=== PATIENT | male | born 1945 | race Asian ===

== ENCOUNTER 2016-10-23 16:54 | Inpatient (IN) | payer MEDICARE, OTHER ==
[~2016-10-23] VITALS: Ht 177.8 cm; Wt 77.6 kg
[2016-10-23] MEDS ORDERED: ALBU2.5V13 IH (17:18)
[2016-10-23] MEDS ORDERED: FISH OIL (17:18)
[2016-10-23] MEDS ORDERED: AMLO2.5T45 PO (17:18)
[2016-10-23] MEDS ORDERED: ALLO100T PO (17:18)
[2016-10-23] MEDS ORDERED: BRIM15DR2 OP (17:18)
[2016-10-23] MEDS ORDERED: MAGN400T27 PO (17:18)
[2016-10-23] MEDS ORDERED: DOCU-150 PO (17:18)
[2016-10-23] MEDS ORDERED: METO25TA6 PO (17:18)
[2016-10-23] MEDS ORDERED: TAMULOSIN (17:18)
[2016-10-23] MEDS ORDERED: ASPI-1159 PO (17:18)
[2016-10-23] MEDS ORDERED: METF500T4 PO (17:18)
[2016-10-23] MEDS ORDERED: FAMO20TA8 PO (17:18)
[2016-10-23] MEDS ORDERED: ATOR20TA65 PO (17:18)
[2016-10-23] MEDS ORDERED: AMIT75TA2 PO (17:18)
[2016-10-23] MEDS ORDERED: CARB15DR2 OP (17:18)
[2016-10-23] MEDS ORDERED: SAXA5TAB PO (17:18)
[2016-10-23] MEDS ORDERED: LEVO25TA2 PO (17:18)
[2016-10-23] MEDS ORDERED: SODIUM CHLORIDE 0.9% 1,000 ML IV ONE (17:19)
[2016-10-23] MEDS ORDERED: SODIUM CHLORIDE 0.9% 1000ML BAG (SEPSIS BOLUS) IV ONE (17:30)
[2016-10-23 17:42] LABS: BG BASE EXCESS -1.6 mmol/L (-2.0-2.0); BG CARBOXYHEMOGLOBIN 0.9 % (0.5-1.5); BG FRACTION INSPIRED OXYGEN 21; BG METHEMOGLOBIN 0.2 % (0.0-1.5); BG OXYHEMOGLOBIN 94.9 % (94.0-97.0); BG PCO2 29.9 mmHg (35.0-45.0); BG PH 7.465 (7.350-7.450); BG PO2 78.8 mmHg (75.0-100.0); BG SAMPLE SITE RIGHT RADIAL; BG TOTAL HEMOGLOBIN 13.8 g/dL (12.0-18.0); BG VENT MODE ROOM AIR
[2016-10-23 18:10] LABS: EOSINOPHILS % 1.9 % (0.0-5.0); HEMATOCRIT. 38.3 % (42.0-52.0); HEMOGLOBIN. 13.2 g/dL (14.0-18.0); LYMPHOCYTES % 21.2 % (20.0-50.0); MEAN CORPUSCULAR HEMOGLOBIN 33.9 pg (28.0-32.0); MEAN PLATELET VOLUME 8.2 fl (7.4-10.4); MONOCYTES % 12.3 % (2.0-8.0); NEUTROPHILS % 63.6 % (40.0-76.0); PLATELET 195 x1000/uL (130-400); RED BLOOD CELL COUNT 3.91 mill/uL (4.7-6.1); RED CELL DISTRIBUTION WIDTH 16.2 % (11.6-14.6)
[2016-10-23 18:15] LABS: CLARITY URINE CLEAR (CLEAR); COLOR URINE YELLOW (YELLOW); GLUCOSE URINE 3+ (NEGATIVE); KETONES URINE NEGATIVE (NEGATIVE); LEUKOCYTE ESTERASE URINE NEGATIVE (NEGATIVE); NITRITE URINE NEGATIVE (NEGATIVE); OCCULT BLOOD URINE NEGATIVE (NEGATIVE); PH URINE 6.5 (4.5-8.0); PROTEIN URINE TRACE (NEGATIVE); SPECIFIC GRAVITY URINE 1.018 (1.005-1.030)
[2016-10-23 18:24] LABS: CARBON DIOXIDE 25 mEq/L (21-32); CHLORIDE 96 mEq/L (98-107); ETHANOL BLOOD < 10 mg/dL
[2016-10-23 18:26] LABS: BETA HYDROXYBUTYRATE 0.2 mMol/L (0.0-0.3); TROPONIN I < 0.02 ng/mL (0.00-0.04)
[2016-10-23 18:48] LABS: INR 1.1; PROTHROMBIN TIME 11.4 sec (9.4-11.6)
[2016-10-23] MEDS ORDERED: LEVOFLOXACIN 500MG PREMIX 100 ML IV ONE (20:00)
[2016-10-23] MEDS ORDERED: KCL 20MEQ/100ML PREMIX 100 ML IV SCH (21:30)
[2016-10-23] MEDS ORDERED: DEXTROSE 50% WATER 50ML SYRINGE IV PRN (21:30)
[2016-10-23] MEDS ORDERED: ACETAMINOPHEN 650MG SUPP PR PRN (21:30)
[2016-10-23] MEDS ORDERED: DIPHENHYDRAMINE 50MG/ML VIAL IV PRN (21:30)
[2016-10-23] MEDS ORDERED: ONDANSETRON HCL 4MG/2ML VIAL IV PRN (21:30)
[2016-10-23 23:00] VITALS: BP 141/99
[2016-10-23 23:01] VITALS: BP 141/99
[2016-10-24] VITALS (12 sets, daily range): BP systolic 115–150; BP diastolic 83–104
[2016-10-24] MEDS: BLOOD SUGAR DIAGNOSTIC STRIP TEST SCH ×4 (00:15→16:11)
[2016-10-24] MEDS: SODIUM CHLORIDE 0.9% 1,000 ML IV SCH ×3 (00:24→19:35)
[2016-10-24] MEDS: INSULIN LISPRO 100 UNITS/ML SUBCUT SCH ×5 (01:47→22:00)
[2016-10-24] MEDS ORDERED: MAGNESIUM 2 G PREMIX 50 ML IV SCH (03:00)
[2016-10-24] MEDS ORDERED: THIAMINE HCL 100 MG in SODIUM CHLORIDE 0.9% 49 ML IV NR (03:00)
[2016-10-24 06:51] LABS: EOSINOPHILS % 10.5 % (0.0-5.0); HEMATOCRIT. 37.9 % (42.0-52.0); HEMOGLOBIN. 13.3 g/dL (14.0-18.0); LYMPHOCYTES % 22.5 % (20.0-50.0); MEAN CORPUSCULAR HEMOGLOBIN 34.4 pg (28.0-32.0); MEAN CORPUSCULAR VOLUME 97.9 fL (80.0-94.0); MEAN PLATELET VOLUME 8.1 fl (7.4-10.4); MONOCYTES % 13.4 % (2.0-8.0); NEUTROPHILS % 52.6 % (40.0-76.0); PLATELET 195 x1000/uL (130-400); RED BLOOD CELL COUNT 3.87 mill/uL (4.7-6.1)
[2016-10-24] MEDS ORDERED: INSULIN LISPRO 100 UNITS/ML SUBCUT SCH (07:20)
[2016-10-24] MEDS ORDERED: POTASSIUM CHLORIDE INJ 40 MEQ in DEXT 5% WATER 250 ML IV NR (10:30)
[2016-10-24] MEDS ORDERED: alfuzosin (11:16)
[2016-10-24] MEDS ORDERED: HYDR12.529 PO (11:16)
[2016-10-24] MEDS ORDERED: RANI150C12 PO (11:16)
[2016-10-24] MEDS ORDERED: CHOL100044 PO (11:16)
[2016-10-24] MEDS ORDERED: POTASSIUM CHLORIDE 20MEQ/PACKET PO SCH (12:00)
[2016-10-24] MEDS: ASPIRIN 325MG EC TABLET PO SCH (14:16)
[2016-10-24] MEDS: INSULIN DETEMIR UD 100 UNITS/ML SYR SUBCUT SCH (22:01)
[2016-10-25] VITALS (10 sets, daily range): BP systolic 131–143; BP diastolic 91–103
[2016-10-25] MEDS: SODIUM CHLORIDE 0.9% 1,000 ML IV SCH ×3 (02:39→18:10)
[2016-10-25] MEDS: BLOOD SUGAR DIAGNOSTIC STRIP TEST SCH ×4 (05:21→20:52)
[2016-10-25] MEDS: INSULIN LISPRO 100 UNITS/ML SUBCUT SCH ×4 (05:21→21:04)
[2016-10-25] MEDS: ASPIRIN 325MG EC TABLET PO SCH (08:59)
[2016-10-25] MEDS ORDERED: MAGNESIUM 1 G PREMIX 100 ML IV NR (14:30)
[2016-10-25] MEDS: ATORVASTATIN CALCIUM 20MG TABLET PO SCH (21:04)
[2016-10-25] MEDS: INSULIN DETEMIR UD 100 UNITS/ML SYR SUBCUT SCH (21:06)
[2016-10-26] VITALS (10 sets, daily range): BP systolic 131–152; BP diastolic 84–104
[2016-10-26] MEDS: BLOOD SUGAR DIAGNOSTIC STRIP TEST SCH ×4 (06:50→21:21)
[2016-10-26] MEDS: INSULIN LISPRO 100 UNITS/ML SUBCUT SCH ×4 (07:20→21:00)
[2016-10-26] MEDS: ASPIRIN 325MG EC TABLET PO SCH (08:23)
[2016-10-26] MEDS: SODIUM CHLORIDE 0.9% 1,000 ML IV SCH (16:16)
[2016-10-26] MEDS: ATORVASTATIN CALCIUM 20MG TABLET PO SCH (21:15)
[2016-10-26] MEDS: INSULIN DETEMIR UD 100 UNITS/ML SYR SUBCUT SCH (21:21)
[2016-10-27] VITALS: BP 148/97
[2016-10-27 04:00] VITALS: BP 120/81
[2016-10-27] MEDS: BLOOD SUGAR DIAGNOSTIC STRIP TEST SCH ×3 (06:26→17:03)
[2016-10-27] MEDS: INSULIN LISPRO 100 UNITS/ML SUBCUT SCH ×3 (06:26→17:03)
[2016-10-27 08:34] VITALS: BP 146/100
[2016-10-27] MEDS: ASPIRIN 325MG EC TABLET PO SCH (08:35)
[2016-10-27 12:37] VITALS: BP_SYST 103; BP_SYST 137; BP_DIAS 53; BP_DIAS 89
[2016-10-27 14:07] VITALS: BP 137/89
[2016-10-27 16:01] VITALS: BP 137/89
== END 2016-10-27 19:05 | disposition home or self-care (01) | DRG 65 ==
LOC: ER 16:54 → EDBEDREQ 20:59 → EDBEDREQSVC 20:59 → EDBEDREQTM 20:59 → 3WST 21:20 → EDBEDREQSVC 21:22 → EDBEDREQTM 21:22 → ENRESERV 21:37 → 8WST 10-26 22:35
PROVIDERS: ADMIT Internal Medicine; ATTEND Internal Medicine
DX: I63.9 Cerebral infarction, unspecified (principal); E44.0 Moderate protein-calorie malnutrition; E11.22 Type 2 diabetes mellitus with diabetic chronic kidney disease; E11.40 Type 2 diabetes mellitus with diabetic neuropathy, unspecified; E87.6 Hypokalemia; I12.9 Hypertensive chronic kidney disease with stage 1 through stage 4 chronic kidney disease, or unspecified chronic kidney disease; N18.9 Chronic kidney disease, unspecified; R47.01 Aphasia; M10.9 Gout, unspecified; F10.20 Alcohol dependence, uncomplicated; R62.7 Adult failure to thrive; E11.65 Type 2 diabetes mellitus with hyperglycemia; Z83.3 Family history of diabetes mellitus; Z86.011 Personal history of benign neoplasm of the brain; Z79.82 Long term (current) use of aspirin; Z79.899 Other long term (current) drug therapy
CPT/HCPCS: 36415; 36600; 51701; 70450; 70551; 71010; 80048; 80053; 80061; 81001; 82010; 82375; 82805; 82962; 83036; 83605; 83735; 84443; 84484; 85025; 85610; 87040; 87086; 92610; 93005; 93880; 96361; 96365; 96367; 97112; 97163; 97166; 97530; 99291; G0482; J1815; J1956; J3411; J3475; J3480; J7030; J7060; A4315

== ENCOUNTER 2017-11-21 09:18 | Inpatient (IN) | payer MEDICARE, OTHER ==
[~2017-11-21] VITALS: Ht 175.3 cm; Wt 75.4 kg
[~2017-11-21 09:18] MED LIST: ALBU2.5V13 IH; ALLO100T PO; AMIT75TA2 PO; AMLO2.5T45 PO; ASPI-1159 PO; ATOR20TA65 PO; BRIM15DR2 OP; CARB15DR2 OP; CHOL100044 PO; DOCU-150 PO; FAMO20TA8 PO; FISH OIL; HYDR12.529 PO; LEVO25TA2 PO; MAGN400T27 PO; METO25TA6 PO; RANI150C12 PO; SAXA5TAB PO; TAMULOSIN; alfuzosin PO
[2017-11-21 09:49] LABS: BASOPHILS % 1.3 % (0.0-2.0); EOSINOPHILS % 0.7 % (0.0-5.0); HEMATOCRIT. 43.6 % (42.0-52.0); HEMOGLOBIN. 14.7 g/dL (14.0-18.0); LYMPHOCYTES % 37.9 % (20.0-50.0); MEAN CORPUSCULAR HEMOGLOBIN 33.6 pg (28.0-32.0); MEAN CORPUSCULAR VOLUME 99.4 fL (80.0-94.0); MEAN PLATELET VOLUME 8.7 fl (7.4-10.4); MONOCYTES % 7.6 % (2.0-8.0); NEUTROPHILS % 52.5 % (40.0-76.0); PLATELET 214 x1000/uL (130-400); RED BLOOD CELL COUNT 4.38 mill/uL (4.7-6.1); RED CELL DISTRIBUTION WIDTH 15.5 % (11.6-14.6)
[2017-11-21 09:53] LABS: CHLORIDE 96 mEq/L (98-107)
[2017-11-21 09:55] LABS: INR 1.2; PROTHROMBIN TIME 11.6 sec (9.1-11.1)
[2017-11-21 10:02] LABS: LDL CHOLESTEROL 145 mg/dL (5-100)
[2017-11-21 10:03] LABS: ETHANOL BLOOD < 10 mg/dL
[2017-11-21 11:30] LABS: CLARITY URINE CLEAR (CLEAR); COLOR URINE YELLOW (YELLOW); KETONES URINE NEGATIVE (NEGATIVE); LEUKOCYTE ESTERASE URINE NEGATIVE (NEGATIVE); NITRITE URINE NEGATIVE (NEGATIVE); OCCULT BLOOD URINE TRACE (NEGATIVE); PROTEIN URINE NEGATIVE (NEGATIVE); SPECIFIC GRAVITY URINE 1.015 (1.005-1.030); UROBILINOGEN URINE 0.2 E.U./dL (0.2-1.0)
[2017-11-21] MEDS ORDERED: IOHEXOL-350 100 ML BOTTLE ONE (11:35)
[2017-11-21 11:43] LABS: *AMPHETAMINES SCREEN URINE NEGATIVE (NEGATIVE); *BARBITURATES SCREEN URINE NEGATIVE (NEGATIVE); CANNABINOID URINE SCREEN NEGATIVE (NEGATIVE)
[2017-11-21 11:44] LABS: *BENZODIAZEPINES SCREEN URINE NEGATIVE (NEGATIVE); *COCAINE SCREEN URINE NEGATIVE (NEGATIVE); METHADONE URINE SCREEN NEGATIVE (NEGATIVE); OPIATES URINE SCREEN NEGATIVE (NEGATIVE)
[2017-11-21 11:45] LABS: PHENCYCLIDINE URINE SCREEN NEGATIVE (NEGATIVE)
[2017-11-21] MEDS ORDERED: LOSA50TA20 MT (15:55)
[2017-11-21] MEDS ORDERED: HYDR5TAB2 PO (15:55)
[2017-11-21] MEDS ORDERED: COLC0.6C3 PO (15:55)
[2017-11-21] MEDS ORDERED: REPA0.5T3 MT (15:55)
[2017-11-21] MEDS ORDERED: HYDR10TA14 PO (15:55)
[2017-11-21 16:00] VITALS: BP 147/83
[2017-11-21] MEDS ORDERED: ONDANSETRON HCL 4MG/2ML INJ IV PRN (16:30)
[2017-11-21] MEDS ORDERED: ACETAMINOPHEN 325MG TABLET PO PRN (16:30)
[2017-11-21] MEDS ORDERED: CLONIDINE 0.1MG TABLET PO PRN (16:30)
[2017-11-21] MEDS ORDERED: DOCUSATE SODIUM 100MG CAPSULE PO PRN (16:30)
[2017-11-21 18:00] VITALS: BP 150/92
[2017-11-21] MEDS: ASPIRIN 81MG EC TABLET PO SCH (18:36)
[2017-11-21] MEDS: AMLODIPINE 10MG TABLET PO SCH (18:37)
[2017-11-21 19:05] VITALS: BP 157/94
[2017-11-21 20:00] VITALS: BP 140/86
[2017-11-21] MEDS ORDERED: DEXTROSE 50% WATER 50ML SYRINGE IV PRN (20:00)
[2017-11-21] MEDS: BLOOD SUGAR DIAGNOSTIC STRIP TEST SCH (20:57)
[2017-11-21] MEDS: INSULIN LISPRO 100 UNITS/ML SUBCUT SCH (21:34)
[2017-11-21 22:00] VITALS: BP 117/69
[2017-11-22] VITALS (12 sets, daily range): BP systolic 106–131; BP diastolic 62–86
[2017-11-22 07:20] LABS: BASOPHILS % 0.9 % (0.0-2.0); EOSINOPHILS % 7.4 % (0.0-5.0); HEMATOCRIT. 40.5 % (42.0-52.0); LYMPHOCYTES % 39.6 % (20.0-50.0); MEAN CORPUSCULAR HEMOGLOBIN 34.2 pg (28.0-32.0); MEAN CORPUSCULAR VOLUME 98.8 fL (80.0-94.0); MEAN PLATELET VOLUME 8.9 fl (7.4-10.4); MONOCYTES % 11.5 % (2.0-8.0); NEUTROPHILS % 40.6 % (40.0-76.0); PLATELET 197 x1000/uL (130-400); RED CELL DISTRIBUTION WIDTH 16.1 % (11.6-14.6)
[2017-11-22] MEDS: BLOOD SUGAR DIAGNOSTIC STRIP TEST SCH ×4 (07:30→21:00)
[2017-11-22 08:15] LABS: CHLORIDE 99 mEq/L (98-107)
[2017-11-22 08:28] LABS: LDL CHOLESTEROL 162 mg/dL (5-100)
[2017-11-22 08:30] LABS: HDL CHOLESTEROL 30 mg/dL (40-59)
[2017-11-22] MEDS: ASPIRIN 81MG EC TABLET PO SCH (08:35)
[2017-11-22] MEDS: AMLODIPINE 10MG TABLET PO SCH (08:36)
[2017-11-22] MEDS: INSULIN LISPRO 100 UNITS/ML SUBCUT SCH ×4 (08:36→21:00)
[2017-11-22 18:44] LABS: T4 FREE 0.45 ng/dL (0.76-1.46)
[2017-11-22 18:59] LABS: FOLIC ACID (FOLATE) SERUM 6.1 ng/mL (>5.38)
[2017-11-22 19:45] LABS: AMMONIA 18 uMol/L (<32)
[2017-11-23] VITALS (9 sets, daily range): BP systolic 112–135; BP diastolic 69–88
[2017-11-23] MEDS: BLOOD SUGAR DIAGNOSTIC STRIP TEST SCH ×2 (07:54→12:04)
[2017-11-23] MEDS: INSULIN LISPRO 100 UNITS/ML SUBCUT SCH ×2 (08:17→12:04)
[2017-11-23] MEDS: AMLODIPINE 10MG TABLET PO SCH (08:18)
[2017-11-23] MEDS ORDERED: THIAMINE HCL 100MG TABLET PO SCH (09:00)
[2017-11-23] MEDS ORDERED: FOLIC ACID 1MG TABLET PO SCH (09:00)
[2017-11-23] MEDS ORDERED: CLOPIDOGREL 75MG TABLET PO SCH (09:00)
[2017-11-23] MEDS ORDERED: MULTIVITAMINS,THER W-MINERALS TABLET PO SCH (09:00)
== END 2017-11-23 15:20 | disposition home or self-care (01) | DRG 70 ==
LOC: ER 09:30 → 5EST 11:01 → EDBEDREQSVC 11:04 → EDBEDREQ 11:04 → EDBEDREQTM 11:04 → ENRESERV 13:42
PROVIDERS: ADMIT Hospitalist; ATTEND Hospitalist
DX: G93.41 Metabolic encephalopathy (principal); N17.0 Acute kidney failure with tubular necrosis; G45.9 Transient cerebral ischemic attack, unspecified; E11.65 Type 2 diabetes mellitus with hyperglycemia; E03.9 Hypothyroidism, unspecified; E78.00 Pure hypercholesterolemia, unspecified; N18.9 Chronic kidney disease, unspecified; I12.9 Hypertensive chronic kidney disease with stage 1 through stage 4 chronic kidney disease, or unspecified chronic kidney disease; E11.22 Type 2 diabetes mellitus with diabetic chronic kidney disease; G40.909 Epilepsy, unspecified, not intractable, without status epilepticus; Z86.73 Personal history of transient ischemic attack (TIA), and cerebral infarction without residual deficits; Z79.899 Other long term (current) drug therapy; Z79.82 Long term (current) use of aspirin; Z85.841 Personal history of malignant neoplasm of brain
CPT/HCPCS: 36415; 70450; 70496; 70498; 70551; 71045; 80053; 80061; 80305; 81003; 82140; 82607; 82746; 82962; 83036; 83721; 83735; 84439; 84443; 84481; 84484; 85025; 85610; 92610; 93005; 93306; 93970; 99291; G0482; J1815; J7050; Q9967

== ENCOUNTER 2019-02-19 12:56 | Emergency (ER) | payer MEDICARE, OTHER ==
[~2019-02-19] VITALS: Ht 172.7 cm; Wt 82.0 kg
[~2019-02-19 12:56] MED LIST changes: -ASPI-1159 PO; +ASPI-1497 PO; -BRIM15DR2 OP; -CHOL100044 PO; +COLC0.6C3 PO; -FISH OIL; +HYDR-3847 PO; -HYDR12.529 PO; +HYDR5TAB8 PO; +LOSA50TA41 MT; -MAGN400T27 PO; +MAGN400T8 PO; -RANI150C12 PO; +REPA0.5T5 MT; -TAMULOSIN
[2019-02-19] MEDS ORDERED: METHYLPREDNISOLONE SOD SUCC 125 MG/2 ML VIAL IV STA (13:54)
[2019-02-19] MEDS ORDERED: SODIUM CHLORIDE 0.9% 1,000 ML IV ONE (13:54)
[2019-02-19] MEDS ORDERED: ALBUTEROL (0.083%) 2.5MG/3ML NEB HHN STA (13:54)
[2019-02-19 14:05] LABS: HEMATOCRIT. 41.5 % (42.0-52.0); HEMOGLOBIN. 13.6 g/dL (14.0-18.0); MEAN CORPUSCULAR VOLUME 95.2 fL (80.0-94.0); PLATELET 211 x1000/uL (130-400); RED BLOOD CELL COUNT 4.36 mill/uL (4.7-6.1); RED CELL DISTRIBUTION WIDTH 14.9 % (11.6-14.6)
[2019-02-19 14:14] LABS: CHLORIDE 103 mEq/L (98-107)
[2019-02-19] MEDS ORDERED: ALBUTEROL (0.083%) 2.5MG/3ML NEB ONE (14:17)
[2019-02-19 14:26] LABS: PLATELET ESTIMATE NORMAL
[2019-02-19 16:05] VITALS: BP 167/72
== END 2019-02-19 16:09 | disposition home or self-care (01) ==
LOC: ER 12:56 → CANBEDREQ 21:31
DX: E16.0 Drug-induced hypoglycemia without coma (principal); R06.03 Acute respiratory distress; I10 Essential (primary) hypertension; E11.9 Type 2 diabetes mellitus without complications; Z79.899 Other long term (current) drug therapy; Z79.4 Long term (current) use of insulin
CPT/HCPCS: 36415; 71045; 80053; 82962; 83880; 84484; 85025; 93005; 94640; 96374; 99284; J2930; J7030; J7611

== ENCOUNTER 2019-03-27 15:18 | Inpatient (IN) | payer MEDICARE, OTHER ==
[~2019-03-27] VITALS: Ht 175.3 cm; Wt 70.9 kg
[2019-03-27] MEDS ORDERED: SODIUM CHLORIDE 0.9% 1,000 ML IV ONE ×2 (16:09→17:00)
[2019-03-27] MEDS ORDERED: LORAZEPAM 2MG/ML CPJ ONE (16:48)
[2019-03-27 16:50] LABS: HEMATOCRIT. 35.3 % (42.0-52.0); HEMOGLOBIN. 11.7 g/dL (14.0-18.0); MEAN CORPUSCULAR HEMOGLOBIN 30.9 pg (28.0-32.0); PLATELET 121 x1000/uL (130-400); RED CELL DISTRIBUTION WIDTH 16.3 % (11.6-14.6)
[2019-03-27 16:56] LABS: CHLORIDE 102 mEq/L (98-107)
[2019-03-27 17:00] LABS: ETHANOL BLOOD < 10 mg/dL
[2019-03-27] MEDS ORDERED: LEVETIRACETAM 500MG PREMIX 100 ML IV ONE (17:00)
[2019-03-27] MEDS ORDERED: LORAZEPAM 2MG/ML CPJ IV ONE (17:00)
[2019-03-27] MEDS ORDERED: INSULIN REGULAR (HUMULIN R) 300UNITS/3ML SUBCUT ONE (17:00)
[2019-03-27 17:14] LABS: PLATELET ESTIMATE DECREASED
[2019-03-27 18:11] LABS: CLARITY URINE CLOUDY (CLEAR); COLOR URINE YELLOW (YELLOW); KETONES URINE NEGATIVE (NEGATIVE); LEUKOCYTE ESTERASE URINE NEGATIVE (NEGATIVE); NITRITE URINE NEGATIVE (NEGATIVE); OCCULT BLOOD URINE 3+ (NEGATIVE); PH URINE 6.5 (4.5-8.0); PROTEIN URINE 2+ (NEGATIVE); SPECIFIC GRAVITY URINE 1.019 (1.005-1.030)
[2019-03-27 18:28] LABS: *BARBITURATES SCREEN URINE NEGATIVE (NEGATIVE)
[2019-03-27 18:29] LABS: *BENZODIAZEPINES SCREEN URINE NEGATIVE (NEGATIVE); *COCAINE SCREEN URINE NEGATIVE (NEGATIVE); CANNABINOID URINE SCREEN NEGATIVE (NEGATIVE); METHADONE URINE SCREEN NEGATIVE (NEGATIVE); OPIATES URINE SCREEN NEGATIVE (NEGATIVE); PHENCYCLIDINE URINE SCREEN NEGATIVE (NEGATIVE)
[2019-03-27 18:30] LABS: *AMPHETAMINES SCREEN URINE NEGATIVE (NEGATIVE)
[2019-03-27] MEDS ORDERED: DOCUSATE SODIUM 100MG CAPSULE PO PRN (19:15)
[2019-03-27] MEDS ORDERED: LORAZEPAM 2MG/ML CPJ IV PRN (19:15)
[2019-03-27] MEDS ORDERED: CLONIDINE 0.1MG TABLET PO PRN (19:15)
[2019-03-27] MEDS ORDERED: MAGNESIUM/ALUMINUM HYDROXIDE/SIMETHICONE 30ML UDC PO PRN (19:15)
[2019-03-27] MEDS ORDERED: ONDANSETRON HCL 4MG/2ML INJ IV PRN (19:15)
[2019-03-27] MEDS ORDERED: GUAIFENESIN 200MG/10ML SUGAR FREE UDC PO PRN (19:15)
[2019-03-28 05:26] LABS: CHLORIDE 108 mEq/L (98-107)
[2019-03-28 05:28] LABS: HEMATOCRIT. 36.3 % (42.0-52.0); HEMOGLOBIN. 12.2 g/dL (14.0-18.0); MEAN CORPUSCULAR HEMOGLOBIN 31.2 pg (28.0-32.0); MEAN CORPUSCULAR VOLUME 92.4 fL (80.0-94.0); PLATELET 149 x1000/uL (130-400); RED BLOOD CELL COUNT 3.92 mill/uL (4.7-6.1); RED CELL DISTRIBUTION WIDTH 16.1 % (11.6-14.6)
[2019-03-28] MEDS ORDERED: LEVETIRACETAM 500MG PREMIX 100 ML IV NR (06:00)
[2019-03-28 06:18] LABS: PLATELET ESTIMATE NORMAL
[2019-03-28] MEDS: SODIUM CHLORIDE 0.45% 1,000 ML IV SCH ×2 (06:43→20:50)
[2019-03-28] MEDS ORDERED: POTASSIUM CHLORIDE INJ 40 MEQ in DEXT 5% WATER 250 ML IV ONE (07:00)
[2019-03-28] MEDS: INSULIN LISPRO 100 UNITS/ML SUBCUT SCH ×4 (08:20→21:01)
[2019-03-28] MEDS: BLOOD SUGAR DIAGNOSTIC STRIP TEST SCH ×3 (11:45→20:42)
[2019-03-28 12:00] VITALS: BP 162/60
[2019-03-28] MEDS ORDERED: ENOXAPARIN 40MG/0.4ML SYR SUBCUT SCH (12:00)
[2019-03-28 12:30] VITALS: BP 162/60
[2019-03-28] MEDS: ALLOPURINOL 100 MG TABLET PO SCH (12:44)
[2019-03-28] MEDS: AMLODIPINE 10MG TABLET PO SCH (12:44)
[2019-03-28] MEDS: DEXT 5%/0.45% NACL KCL 20MEQ/L 1,000 ML IV SCH ×2 (14:14→23:43)
[2019-03-28] MEDS: COLCHICINE 0.6MG TABLET PO SCH (14:14)
[2019-03-28] MEDS ORDERED: ALFU10TA9 PO (15:23)
[2019-03-28] MEDS ORDERED: HYDR5TAB PO (15:23)
[2019-03-28] MEDS ORDERED: METO25TA6 PO (15:23)
[2019-03-28] MEDS ORDERED: MAGN400C PO (15:23)
[2019-03-28] MEDS ORDERED: ASPI-1497 PO (15:23)
[2019-03-28] MEDS ORDERED: FAMO20TA8 PO (15:23)
[2019-03-28] MEDS ORDERED: HYDR10TA PO (15:23)
[2019-03-28] MEDS ORDERED: DOCU250C69 PO (15:23)
[2019-03-28] MEDS ORDERED: THIA100T72 PO (15:23)
[2019-03-28] MEDS ORDERED: CHOL200059 PO (15:23)
[2019-03-28] MEDS ORDERED: CETI5TAB5 PO (15:23)
[2019-03-28] MEDS ORDERED: ATOR-2 PO (15:23)
[2019-03-28] MEDS ORDERED: ALLO100T PO (15:23)
[2019-03-28 16:00] VITALS: BP 148/69
[2019-03-28 19:22] LABS: T4 FREE 1.35 ng/dL (0.76-1.46)
[2019-03-28 20:00] VITALS: BP 154/82
[2019-03-28] MEDS: LEVETIRACETAM 500MG PREMIX 100 ML IV SCH (20:50)
[2019-03-28] MEDS: ATORVASTATIN CALCIUM 20MG TABLET PO SCH (20:51)
[2019-03-28] MEDS: HYDRALAZINE 20MG/ML VIAL IV PRN (22:06)
[2019-03-29] VITALS: BP 146/65
[2019-03-29 04:00] VITALS: BP 132/73
[2019-03-29] MEDS: ACETAMINOPHEN 325MG TABLET PO PRN (04:24)
[2019-03-29] MEDS: BLOOD SUGAR DIAGNOSTIC STRIP TEST SCH ×4 (06:29→21:04)
[2019-03-29] MEDS: INSULIN LISPRO 100 UNITS/ML SUBCUT SCH ×4 (06:45→21:17)
[2019-03-29 08:00] VITALS: BP 132/84
[2019-03-29] MEDS: LEVETIRACETAM 500MG PREMIX 100 ML IV SCH ×2 (10:39→22:24)
[2019-03-29] MEDS: AMLODIPINE 10MG TABLET PO SCH (10:40)
[2019-03-29] MEDS: MULTIVITAMINS,THER W-MINERALS TABLET PO SCH (10:40)
[2019-03-29] MEDS: ALLOPURINOL 100 MG TABLET PO SCH (10:40)
[2019-03-29] MEDS: THIAMINE HCL 100MG TABLET PO SCH (10:40)
[2019-03-29] MEDS: FOLIC ACID 1MG TABLET PO SCH (10:40)
[2019-03-29] MEDS: COLCHICINE 0.6MG TABLET PO SCH (10:56)
[2019-03-29 12:00] VITALS: BP 140/82
[2019-03-29] MEDS: SODIUM CHLORIDE 0.45% 1,000 ML IV SCH ×2 (12:28→21:15)
[2019-03-29 16:00] VITALS: BP 132/78
[2019-03-29 16:39] LABS: CHLORIDE 101 mEq/L (98-107)
[2019-03-29] MEDS: DEXT 5%/0.45% NACL KCL 20MEQ/L 1,000 ML IV SCH (18:05)
[2019-03-29 18:08] LABS: FOLIC ACID (FOLATE) SERUM 12.1 ng/mL (>5.38)
[2019-03-29 20:00] VITALS: BP 141/77
[2019-03-29] MEDS: ATORVASTATIN CALCIUM 20MG TABLET PO SCH (21:14)
[2019-03-30] VITALS: BP 149/84
[2019-03-30] MEDS: ACETAMINOPHEN 325MG TABLET PO PRN (00:04)
[2019-03-30 04:00] VITALS: BP 109/44
[2019-03-30] MEDS: HYDRALAZINE 20MG/ML VIAL IV PRN (04:20)
[2019-03-30] MEDS: DEXT 5%/0.45% NACL KCL 20MEQ/L 1,000 ML IV SCH ×2 (05:53→21:20)
[2019-03-30] MEDS: BLOOD SUGAR DIAGNOSTIC STRIP TEST SCH ×4 (06:20→21:55)
[2019-03-30] MEDS: INSULIN LISPRO 100 UNITS/ML SUBCUT SCH ×4 (06:20→21:00)
[2019-03-30 08:00] VITALS: BP 123/75
[2019-03-30] MEDS: LEVETIRACETAM 500MG PREMIX 100 ML IV SCH ×2 (08:28→21:30)
[2019-03-30] MEDS: THIAMINE HCL 100MG TABLET PO SCH (08:29)
[2019-03-30] MEDS: MULTIVITAMINS,THER W-MINERALS TABLET PO SCH (08:29)
[2019-03-30] MEDS: FOLIC ACID 1MG TABLET PO SCH (08:29)
[2019-03-30] MEDS: AMLODIPINE 10MG TABLET PO SCH (08:29)
[2019-03-30] MEDS: ALLOPURINOL 100 MG TABLET PO SCH (08:29)
[2019-03-30] MEDS: COLCHICINE 0.6MG TABLET PO SCH (08:29)
[2019-03-30 12:00] VITALS: BP 137/82
[2019-03-30] MEDS ORDERED: MAGNESIUM 2 G PREMIX 50 ML IV SCH (12:00)
[2019-03-30 16:00] VITALS: BP 134/74
[2019-03-30 20:00] VITALS: BP 143/78
[2019-03-30] MEDS: ATORVASTATIN CALCIUM 20MG TABLET PO SCH (21:20)
[2019-03-31] VITALS (68 sets, daily range): BP systolic 76–171; BP diastolic 40–94
[2019-03-31] MEDS: ACETAMINOPHEN 325MG TABLET PO PRN (00:12)
[2019-03-31] MEDS: INSULIN LISPRO 100 UNITS/ML SUBCUT SCH ×4 (06:32→21:00)
[2019-03-31] MEDS: BLOOD SUGAR DIAGNOSTIC STRIP TEST SCH ×4 (06:32→21:37)
[2019-03-31] MEDS: ALLOPURINOL 100 MG TABLET PO SCH (09:01)
[2019-03-31] MEDS: COLCHICINE 0.6MG TABLET PO SCH (09:01)
[2019-03-31] MEDS: FOLIC ACID 1MG TABLET PO SCH (09:01)
[2019-03-31] MEDS: THIAMINE HCL 100MG TABLET PO SCH (09:01)
[2019-03-31] MEDS: MULTIVITAMINS,THER W-MINERALS TABLET PO SCH (09:01)
[2019-03-31] MEDS: AMLODIPINE 10MG TABLET PO SCH (09:02)
[2019-03-31] MEDS ORDERED: LEVETIRACETAM 500MG PREMIX 100 ML IV SCH (09:04)
[2019-03-31 10:19] LABS: BG BASE EXCESS -6.5 mmol/L (-2.0-2.0); BG CARBOXYHEMOGLOBIN 0.3 % (0.5-1.5); BG DEOXYHEMOGLOBIN 1.5 % (0.0-5.0); BG HCO3 ACT 17.3 mmol/L (22.0-26.0); BG METHEMOGLOBIN 0.1 % (0.0-1.5); BG OXYGEN SATURATION 98.5 % (92.0-98.5); BG OXYHEMOGLOBIN 98.1 % (94.0-97.0); BG PCO2 29.5 mmHg (35.0-45.0); BG PH 7.386 (7.350-7.450); BG PO2 132.3 mmHg (75.0-100.0); BG SAMPLE SITE RIGHT RADIAL; BG TOTAL HEMOGLOBIN 11.9 g/dL (12.0-18.0); BG VENT MODE NASAL CANNULA
[2019-03-31] MEDS ORDERED: NEOSTIGMINE METHYLSULFATE 1MG/ML 10 ML VIAL ONE (11:15)
[2019-03-31] MEDS ORDERED: LIDOCAINE HCL/PF 1% 10 MG/ML 5ML VIAL ONE (11:15)
[2019-03-31] MEDS ORDERED: GLYCOPYRROLATE 0.2 MG/ML 2ML VIAL ONE (11:15)
[2019-03-31] MEDS ORDERED: CEFAZOLIN SODIUM 1000MG/VIAL ONE (11:15)
[2019-03-31] MEDS ORDERED: MIDAZOLAM HCL 2 MG/2 ML VIAL ONE (11:15)
[2019-03-31] MEDS ORDERED: SODIUM CHLORIDE 0.9% 10ML VIAL ONE (11:15)
[2019-03-31] MEDS ORDERED: FENTANYL CITRATE/PF 50MCG/ML 2ML VIAL ONE (11:15)
[2019-03-31] MEDS ORDERED: PROPOFOL 200MG/20ML VIAL IV ONE (11:15)
[2019-03-31] MEDS ORDERED: ROCURONIUM BROMIDE 10MG/ML VIAL 5ML IV ONE (11:15)
[2019-03-31] MEDS ORDERED: ONDANSETRON HCL 4MG/2ML INJ ONE (11:16)
[2019-03-31] MEDS ORDERED: PHENYLEPHRINE HCL 10 MG/ML 1ML (IV VIAL) IV ONE (11:16)
[2019-03-31] MEDS ORDERED: METOCLOPRAMIDE HCL 10MG/2ML VIAL ONE (11:16)
[2019-03-31] MEDS ORDERED: DEXAMETHASONE 4MG/ML 1ML VIAL ONE (11:16)
[2019-03-31] MEDS ORDERED: EPHEDRINE SULFATE 50MG/ML VIAL ONE (11:16)
[2019-03-31] MEDS ORDERED: SUCCINYLCHOLINE CHLORIDE 200MG/10ML IV ONE (11:16)
[2019-03-31] MEDS ORDERED: THROMBIN (BOVINE) 5000 UNITS/VIAL TOP ONE (11:38)
[2019-03-31] MEDS ORDERED: BACITRACIN 50,000 UNITS/VIAL ONE (11:39)
[2019-03-31] MEDS ORDERED: NORMAL SALINE 0.9% 10 ML SYR ONE (11:39)
[2019-03-31] MEDS ORDERED: LIDOCAINE HCL/EPINEPHRINE 1%-EPI 1:100,000 20 ML VIAL ONE (11:39)
[2019-03-31] MEDS ORDERED: BACITRACIN 15GM TUBE TOP ONE (11:40)
[2019-03-31] MEDS ORDERED: MANNITOL 20% 500 ML IV ONE (12:27)
[2019-03-31] MEDS ORDERED: MORPHINE SULFATE 4 MG/ML CPJ (NOT FOR IM USE) IV PRN (12:30)
[2019-03-31] MEDS ORDERED: CEFAZOLIN SODIUM 1000MG/VIAL IV SCH (14:00)
[2019-03-31] MEDS: DEXT 5%/LACTATED RINGERS 1,000 ML IV SCH (14:51)
[2019-03-31] MEDS: NICARDIPINE 100 MG in SODIUM CHLORIDE 0.9% 60 ML IV PRN (14:53)
[2019-03-31] MEDS ORDERED: PHENYTOIN SODIUM 500 MG in SODIUM CHLORIDE 0.9% 50 ML IV NR (15:15)
[2019-03-31] MEDS: CEFAZOLIN 1000MG PREMIX 50 ML IV SCH ×2 (16:22→21:49)
[2019-03-31] MEDS ORDERED: PHENYTOIN SODIUM 200 MG in SODIUM CHLORIDE 0.9% 50 ML IV ONE (18:45)
[2019-03-31] MEDS ORDERED: LEVETIRACETAM 1,000 MG in SODIUM CHLORIDE 0.9% 100 ML IV SCH (19:00)
[2019-03-31] MEDS ORDERED: PHENYTOIN SODIUM 300 MG in SODIUM CHLORIDE 0.9% 50 ML IV STA (20:09)
[2019-03-31] MEDS: ATORVASTATIN CALCIUM 20MG TABLET PO SCH (20:26)
[2019-03-31] MEDS ORDERED: NOREPINEPHRINE 8 MG in DEXT 5% WATER 242 ML IV PRN (21:15)
[2019-03-31] MEDS: PROPOFOL 10MG/ML 100ML 100 ML IV PRN (21:34)
[2019-03-31] MEDS: SODIUM CHLORIDE 0.9% 500 ML IV NR ×2 (21:36→21:40)
[2019-03-31] MEDS: LEVETIRACETAM 1,000 MG in SODIUM CHLORIDE 0.9% 100 ML IV SCH (22:22)
[2019-03-31] MEDS: PHENYTOIN SODIUM 100MG/2ML VIAL IV SCH (22:41)
[2019-03-31 22:56] LABS: BG BASE EXCESS -6.5 mmol/L (-2.0-2.0); BG CARBOXYHEMOGLOBIN 0.2 % (0.5-1.5); BG DEOXYHEMOGLOBIN 0.3 % (0.0-5.0); BG FRACTION INSPIRED OXYGEN 100; BG METHEMOGLOBIN 0.1 % (0.0-1.5); BG OXYGEN SATURATION 99.7 % (92.0-98.5); BG OXYHEMOGLOBIN 99.4 % (94.0-97.0); BG PCO2 24.6 mmHg (35.0-45.0); BG PH 7.432 (7.350-7.450); BG PO2 346.9 mmHg (75.0-100.0); BG SAMPLE SITE LEFT BRACHIAL; BG TIDAL VOLUME(mL) 500 mL; BG TOTAL HEMOGLOBIN 12.9 g/dL (12.0-18.0); BG VENT MODE VENT - A/C; BG VENT RATE 18 set
[2019-04-01] VITALS (94 sets, daily range): BP systolic 78–139; BP diastolic 45–75
[2019-04-01] MEDS ORDERED: VANCOMYCIN 1 G PREMIX 200 ML IV SCH ×2 (00:30)
[2019-04-01] MEDS: PROPOFOL 10MG/ML 100ML 100 ML IV PRN ×3 (03:12→17:41)
[2019-04-01] MEDS: PHENYTOIN SODIUM 100MG/2ML VIAL IV SCH ×3 (05:28→21:23)
[2019-04-01] MEDS: CEFAZOLIN 1000MG PREMIX 50 ML IV SCH ×3 (05:28→21:23)
[2019-04-01] MEDS: INSULIN LISPRO 100 UNITS/ML SUBCUT SCH ×4 (05:30→20:29)
[2019-04-01] MEDS: BLOOD SUGAR DIAGNOSTIC STRIP TEST SCH ×4 (05:30→20:11)
[2019-04-01 06:11] LABS: BASOPHILS % 0.9 % (0.0-2.0); EOSINOPHILS % 4.2 % (0.0-5.0); HEMATOCRIT. 34.5 % (42.0-52.0); HEMOGLOBIN. 11.3 g/dL (14.0-18.0); LYMPHOCYTES % 11.6 % (20.0-50.0); MEAN CORPUSCULAR HEMOGLOBIN 30.3 pg (28.0-32.0); MEAN CORPUSCULAR VOLUME 92.5 fL (80.0-94.0); MEAN PLATELET VOLUME 8.1 fl (7.4-10.4); MONOCYTES % 14.3 % (2.0-8.0); PLATELET 302 x1000/uL (130-400); RED BLOOD CELL COUNT 3.73 mill/uL (4.7-6.1); RED CELL DISTRIBUTION WIDTH 16.2 % (11.6-14.6)
[2019-04-01 06:21] LABS: CHLORIDE 103 mEq/L (98-107)
[2019-04-01] MEDS: DEXT 5%/LACTATED RINGERS 1,000 ML IV SCH (08:23)
[2019-04-01 08:27] LABS: BG BASE EXCESS -8.4 mmol/L (-2.0-2.0); BG CARBOXYHEMOGLOBIN 0.1 % (0.5-1.5); BG DEOXYHEMOGLOBIN 1.9 % (0.0-5.0); BG FRACTION INSPIRED OXYGEN 50; BG HCO3 ACT 14.4 mmol/L (22.0-26.0); BG METHEMOGLOBIN 0.3 % (0.0-1.5); BG OXYGEN SATURATION 98.1 % (92.0-98.5); BG OXYHEMOGLOBIN 97.7 % (94.0-97.0); BG PCO2 22.8 mmHg (35.0-45.0); BG PH 7.418 (7.350-7.450); BG PO2 130.7 mmHg (75.0-100.0); BG SAMPLE SITE RIGHT RADIAL; BG TIDAL VOLUME(mL) 500 mL; BG TOTAL HEMOGLOBIN 11.5 g/dL (12.0-18.0); BG VENT MODE VENT - A/C; BG VENT RATE 18 set
[2019-04-01] MEDS: THIAMINE HCL 100MG TABLET PO SCH (09:00)
[2019-04-01] MEDS: MULTIVITAMINS,THER W-MINERALS TABLET PO SCH (09:00)
[2019-04-01] MEDS: ALLOPURINOL 100 MG TABLET PO SCH (09:00)
[2019-04-01] MEDS: FOLIC ACID 1MG TABLET PO SCH (09:00)
[2019-04-01] MEDS: AMLODIPINE 10MG TABLET PO SCH (09:00)
[2019-04-01] MEDS: COLCHICINE 0.6MG TABLET PO SCH (09:00)
[2019-04-01] MEDS ORDERED: PHENYTOIN SODIUM 800 MG in SODIUM CHLORIDE 0.9% 100 ML IV NR (09:30)
[2019-04-01] MEDS: LEVETIRACETAM 1,000 MG in SODIUM CHLORIDE 0.9% 100 ML IV SCH ×2 (10:34→21:33)
[2019-04-01] MEDS: PANTOPRAZOLE SODIUM 40 MG/VIAL IV SCH (11:47)
[2019-04-01] MEDS: DEXT 5%/0.45% NACL 1000ML 1,000 ML IV SCH (16:49)
[2019-04-01] MEDS: ATORVASTATIN CALCIUM 20MG TABLET PO SCH (20:09)
[2019-04-01] MEDS: VANCOMYCIN 1 G PREMIX 200 ML IV SCH (20:12)
[2019-04-01] MEDS: NICARDIPINE 100 MG in SODIUM CHLORIDE 0.9% 60 ML IV PRN (21:35)
[2019-04-01] MEDS ORDERED: NICARDIPINE 100 MG in SODIUM CHLORIDE 0.9% 60 ML IV PRN (22:00)
[2019-04-02] VITALS (91 sets, daily range): BP systolic 87–148; BP diastolic 49–97
[2019-04-02] MEDS: PROPOFOL 10MG/ML 100ML 100 ML IV PRN ×4 (00:40→23:06)
[2019-04-02] MEDS: BLOOD SUGAR DIAGNOSTIC STRIP TEST SCH ×4 (05:53→21:13)
[2019-04-02] MEDS: CEFAZOLIN 1000MG PREMIX 50 ML IV SCH ×2 (05:56→14:25)
[2019-04-02] MEDS: DEXT 5%/0.45% NACL 1000ML 1,000 ML IV SCH ×2 (05:59→21:33)
[2019-04-02] MEDS: PHENYTOIN SODIUM 100MG/2ML VIAL IV SCH ×3 (05:59→21:33)
[2019-04-02] MEDS: INSULIN LISPRO 100 UNITS/ML SUBCUT SCH ×4 (06:27→21:00)
[2019-04-02] MEDS: THIAMINE HCL 100MG TABLET PO SCH (09:00)
[2019-04-02] MEDS: COLCHICINE 0.6MG TABLET PO SCH (09:00)
[2019-04-02] MEDS: MULTIVITAMINS,THER W-MINERALS TABLET PO SCH (09:00)
[2019-04-02] MEDS: ALLOPURINOL 100 MG TABLET PO SCH (09:00)
[2019-04-02] MEDS: AMLODIPINE 10MG TABLET PO SCH (09:00)
[2019-04-02] MEDS: FOLIC ACID 1MG TABLET PO SCH (09:00)
[2019-04-02] MEDS: PANTOPRAZOLE SODIUM 40 MG/VIAL IV SCH (09:12)
[2019-04-02] MEDS: LEVETIRACETAM 1,000 MG in SODIUM CHLORIDE 0.9% 100 ML IV SCH ×2 (09:12→21:33)
[2019-04-02] MEDS: VANCOMYCIN 1 G PREMIX 200 ML IV SCH (14:25)
[2019-04-02 15:29] LABS: BG BASE EXCESS -10.4 mmol/L (-2.0-2.0); BG CARBOXYHEMOGLOBIN 0.3 % (0.5-1.5); BG DEOXYHEMOGLOBIN 5.2 % (0.0-5.0); BG FRACTION INSPIRED OXYGEN 40; BG HCO3 ACT 13.7 mmol/L (22.0-26.0); BG METHEMOGLOBIN 0.2 % (0.0-1.5); BG OXYGEN SATURATION 94.8 % (92.0-98.5); BG OXYHEMOGLOBIN 94.3 % (94.0-97.0); BG PCO2 25.8 mmHg (35.0-45.0); BG PH 7.342 (7.350-7.450); BG PO2 77.4 mmHg (75.0-100.0); BG PRESSURE SUPPORT 8; BG SAMPLE SITE RIGHT RADIAL; BG TOTAL HEMOGLOBIN 12.7 g/dL (12.0-18.0); BG VENT MODE VENT - CPAP
[2019-04-02] MEDS: ATORVASTATIN CALCIUM 20MG TABLET PO SCH (21:00)
[2019-04-03] VITALS (71 sets, daily range): BP systolic 94–139; BP diastolic 53–88
[2019-04-03] MEDS: BLOOD SUGAR DIAGNOSTIC STRIP TEST SCH ×4 (06:26→21:55)
[2019-04-03] MEDS: PHENYTOIN SODIUM 100MG/2ML VIAL IV SCH ×3 (06:34→21:55)
[2019-04-03] MEDS: PROPOFOL 10MG/ML 100ML 100 ML IV PRN (06:35)
[2019-04-03] MEDS: INSULIN LISPRO 100 UNITS/ML SUBCUT SCH ×4 (06:36→21:00)
[2019-04-03] MEDS: VANCOMYCIN 1 G PREMIX 200 ML IV SCH (08:33)
[2019-04-03] MEDS: FOLIC ACID 1MG TABLET PO SCH (08:34)
[2019-04-03] MEDS: COLCHICINE 0.6MG TABLET PO SCH (08:34)
[2019-04-03] MEDS: AMLODIPINE 10MG TABLET PO SCH (08:34)
[2019-04-03] MEDS: THIAMINE HCL 100MG TABLET PO SCH (08:35)
[2019-04-03] MEDS: ALLOPURINOL 100 MG TABLET PO SCH (08:35)
[2019-04-03] MEDS: MULTIVITAMINS,THER W-MINERALS TABLET PO SCH (08:35)
[2019-04-03] MEDS: PANTOPRAZOLE SODIUM 40 MG/VIAL IV SCH (08:37)
[2019-04-03] MEDS: LEVETIRACETAM 1,000 MG in SODIUM CHLORIDE 0.9% 100 ML IV SCH ×2 (10:14→21:55)
[2019-04-03 12:49] LABS: BG BASE EXCESS -6.6 mmol/L (-2.0-2.0); BG CARBOXYHEMOGLOBIN 0.3 % (0.5-1.5); BG DEOXYHEMOGLOBIN 3.2 % (0.0-5.0); BG FRACTION INSPIRED OXYGEN 40; BG HCO3 ACT 17.3 mmol/L (22.0-26.0); BG METHEMOGLOBIN 0.1 % (0.0-1.5); BG OXYGEN SATURATION 96.8 % (92.0-98.5); BG OXYHEMOGLOBIN 96.4 % (94.0-97.0); BG PCO2 30.1 mmHg (35.0-45.0); BG PH 7.378 (7.350-7.450); BG PO2 90.5 mmHg (75.0-100.0); BG PRESSURE SUPPORT 8; BG SAMPLE SITE RIGHT RADIAL; BG TOTAL HEMOGLOBIN 12.4 g/dL (12.0-18.0); BG VENT MODE VENT - CPAP
[2019-04-03] MEDS: DEXT 5%/0.45% NACL 1000ML 1,000 ML IV SCH (13:49)
[2019-04-03 17:36] LABS: BASOPHILS % 0.8 % (0.0-2.0); EOSINOPHILS % 10.9 % (0.0-5.0); HEMATOCRIT. 37.9 % (42.0-52.0); HEMOGLOBIN. 12.3 g/dL (14.0-18.0); MEAN CORPUSCULAR HEMOGLOBIN 30.3 pg (28.0-32.0); MEAN CORPUSCULAR VOLUME 93.1 fL (80.0-94.0); MEAN PLATELET VOLUME 7.5 fl (7.4-10.4); MONOCYTES % 14.4 % (2.0-8.0); NEUTROPHILS % 59.9 % (40.0-76.0); PLATELET 352 x1000/uL (130-400); RED BLOOD CELL COUNT 4.07 mill/uL (4.7-6.1)
[2019-04-03] MEDS: ATORVASTATIN CALCIUM 20MG TABLET PO SCH (21:00)
[2019-04-04] VITALS (29 sets, daily range): BP systolic 88–155; BP diastolic 34–88
[2019-04-04] MEDS: BLOOD SUGAR DIAGNOSTIC STRIP TEST SCH ×4 (05:55→21:04)
[2019-04-04] MEDS: PHENYTOIN SODIUM 100MG/2ML VIAL IV SCH ×3 (06:00→21:12)
[2019-04-04] MEDS: DEXT 5%/0.45% NACL 1000ML 1,000 ML IV SCH ×2 (06:00→12:18)
[2019-04-04] MEDS: INSULIN LISPRO 100 UNITS/ML SUBCUT SCH ×4 (06:01→21:00)
[2019-04-04 06:11] LABS: BASOPHILS % 0.8 % (0.0-2.0); EOSINOPHILS % 13.8 % (0.0-5.0); HEMATOCRIT. 32.3 % (42.0-52.0); HEMOGLOBIN. 10.9 g/dL (14.0-18.0); LYMPHOCYTES % 16.6 % (20.0-50.0); MEAN CORPUSCULAR HEMOGLOBIN 31.1 pg (28.0-32.0); MEAN CORPUSCULAR VOLUME 92.6 fL (80.0-94.0); MEAN PLATELET VOLUME 8.3 fl (7.4-10.4); MONOCYTES % 14.3 % (2.0-8.0); NEUTROPHILS % 54.5 % (40.0-76.0); PLATELET 399 x1000/uL (130-400); RED BLOOD CELL COUNT 3.49 mill/uL (4.7-6.1); RED CELL DISTRIBUTION WIDTH 15.6 % (11.6-14.6)
[2019-04-04] MEDS: AMLODIPINE 10MG TABLET PO SCH (09:00)
[2019-04-04] MEDS: LEVETIRACETAM 1,000 MG in SODIUM CHLORIDE 0.9% 100 ML IV SCH ×2 (10:01→22:11)
[2019-04-04] MEDS: PANTOPRAZOLE SODIUM 40 MG/VIAL IV SCH (10:02)
[2019-04-04] MEDS: ALLOPURINOL 100 MG TABLET PO SCH (10:14)
[2019-04-04] MEDS: COLCHICINE 0.6MG TABLET PO SCH (10:14)
[2019-04-04] MEDS: THIAMINE HCL 100MG TABLET PO SCH (10:14)
[2019-04-04] MEDS: MULTIVITAMINS,THER W-MINERALS TABLET PO SCH (10:14)
[2019-04-04] MEDS: FOLIC ACID 1MG TABLET PO SCH (12:17)
[2019-04-04] MEDS ORDERED: VANCOMYCIN 750 MG PREMIX 150 ML IV SCH (21:00)
[2019-04-04] MEDS: HYDRALAZINE 20MG/ML VIAL IV PRN (21:12)
[2019-04-04] MEDS: ATORVASTATIN CALCIUM 20MG TABLET PO SCH (21:12)
[2019-04-05] VITALS (40 sets, daily range): BP systolic 80–164; BP diastolic 46–103
[2019-04-05] MEDS: DEXT 5%/0.45% NACL 1000ML 1,000 ML IV SCH ×2 (04:38→13:11)
[2019-04-05 05:40] LABS: HEMATOCRIT. 34.5 % (42.0-52.0); HEMOGLOBIN. 11.8 g/dL (14.0-18.0); MEAN CORPUSCULAR HEMOGLOBIN 31.3 pg (28.0-32.0); MEAN CORPUSCULAR VOLUME 91.8 fL (80.0-94.0); PLATELET 500 x1000/uL (130-400); RED BLOOD CELL COUNT 3.76 mill/uL (4.7-6.1); RED CELL DISTRIBUTION WIDTH 15.8 % (11.6-14.6)
[2019-04-05] MEDS: BLOOD SUGAR DIAGNOSTIC STRIP TEST SCH ×4 (06:15→21:51)
[2019-04-05] MEDS: PHENYTOIN SODIUM 100MG/2ML VIAL IV SCH ×3 (06:18→21:53)
[2019-04-05] MEDS: INSULIN LISPRO 100 UNITS/ML SUBCUT SCH ×4 (06:18→21:00)
[2019-04-05] MEDS: THIAMINE HCL 100MG TABLET PO SCH (09:00)
[2019-04-05] MEDS: ALLOPURINOL 100 MG TABLET PO SCH (09:00)
[2019-04-05] MEDS: FOLIC ACID 1MG TABLET PO SCH (09:00)
[2019-04-05] MEDS: MULTIVITAMINS,THER W-MINERALS TABLET PO SCH (09:00)
[2019-04-05] MEDS: COLCHICINE 0.6MG TABLET PO SCH (09:00)
[2019-04-05] MEDS: AMLODIPINE 10MG TABLET PO SCH (09:00)
[2019-04-05] MEDS: PANTOPRAZOLE SODIUM 40 MG/VIAL IV SCH (09:19)
[2019-04-05] MEDS: LEVETIRACETAM 1,000 MG in SODIUM CHLORIDE 0.9% 100 ML IV SCH ×2 (09:19→21:53)
[2019-04-05 09:56] LABS: PLATELET ESTIMATE INCREASED
[2019-04-05] MEDS: ZONISAMIDE 100MG CAPSULE PO SCH (12:48)
[2019-04-05] MEDS: HYDRALAZINE 20MG/ML VIAL IV PRN (13:38)
[2019-04-05] MEDS: ATORVASTATIN CALCIUM 20MG TABLET PO SCH (21:53)
[2019-04-06] VITALS (49 sets, daily range): BP systolic 96–168; BP diastolic 56–96
[2019-04-06] MEDS: BLOOD SUGAR DIAGNOSTIC STRIP TEST SCH ×4 (06:21→20:46)
[2019-04-06] MEDS: PHENYTOIN SODIUM 100MG/2ML VIAL IV SCH ×3 (06:23→20:53)
[2019-04-06] MEDS: INSULIN LISPRO 100 UNITS/ML SUBCUT SCH ×4 (06:24→20:46)
[2019-04-06] MEDS: PANTOPRAZOLE SODIUM 40 MG/VIAL IV SCH (08:44)
[2019-04-06] MEDS: AMLODIPINE 10MG TABLET PO SCH (08:45)
[2019-04-06] MEDS: ALLOPURINOL 100 MG TABLET PO SCH (08:45)
[2019-04-06] MEDS: FOLIC ACID 1MG TABLET PO SCH (08:45)
[2019-04-06] MEDS: THIAMINE HCL 100MG TABLET PO SCH (08:45)
[2019-04-06] MEDS: MULTIVITAMINS,THER W-MINERALS TABLET PO SCH (08:45)
[2019-04-06] MEDS: DEXT 5%/0.45% NACL 1000ML 1,000 ML IV SCH ×2 (08:45→20:53)
[2019-04-06] MEDS: COLCHICINE 0.6MG TABLET PO SCH (08:45)
[2019-04-06] MEDS: ZONISAMIDE 100MG CAPSULE PO SCH (08:45)
[2019-04-06] MEDS: HYDRALAZINE 20MG/ML VIAL IV PRN (09:14)
[2019-04-06] MEDS: LEVETIRACETAM 1,000 MG in SODIUM CHLORIDE 0.9% 100 ML IV SCH (10:50)
[2019-04-06 11:49] LABS: BG BASE EXCESS -4.7 mmol/L (-2.0-2.0); BG FRACTION INSPIRED OXYGEN 28; BG HCO3 ACT 18.6 mmol/L (22.0-26.0); BG METHEMOGLOBIN 0.1 % (0.0-1.5); BG OXYHEMOGLOBIN 96.9 % (94.0-97.0); BG PCO2 29.2 mmHg (35.0-45.0); BG PH 7.423 (7.350-7.450); BG PO2 92.2 mmHg (75.0-100.0); BG SAMPLE SITE RIGHT RADIAL; BG TOTAL HEMOGLOBIN 11.9 g/dL (12.0-18.0); BG VENT MODE NASAL CANNULA
[2019-04-06] MEDS: DEXTROSE 50% WATER 50ML SYRINGE IV PRN (20:46)
[2019-04-06] MEDS: ATORVASTATIN CALCIUM 20MG TABLET PO SCH (20:53)
[2019-04-06] MEDS: LEVETIRACETAM 1,500 MG in SODIUM CHLORIDE 0.9% 100 ML IV SCH (21:17)
[2019-04-07] VITALS (49 sets, daily range): BP systolic 87–167; BP diastolic 45–97
[2019-04-07 05:43] LABS: HEMATOCRIT 38.2 % (42.0-52.0); HEMOGLOBIN 12.6 g/dL (14.0-18.0); MEAN CORPUSCULAR HEMOGLOBIN 30.4 pg (28.0-32.0); MEAN CORPUSCULAR VOLUME 92.1 fL (80.0-94.0); PLATELET 538 x1000/uL (130-400); RED BLOOD CELL COUNT 4.15 mill/uL (4.7-6.1); RED CELL DISTRIBUTION WIDTH 15.5 % (11.6-14.6)
[2019-04-07 06:22] LABS: CHLORIDE 95 mEq/L (98-107)
[2019-04-07] MEDS: BLOOD SUGAR DIAGNOSTIC STRIP TEST SCH ×4 (06:28→20:42)
[2019-04-07] MEDS: PHENYTOIN SODIUM 100MG/2ML VIAL IV SCH ×3 (06:31→21:02)
[2019-04-07] MEDS: INSULIN LISPRO 100 UNITS/ML SUBCUT SCH ×4 (06:32→21:06)
[2019-04-07] MEDS ORDERED: ZONISAMIDE 100MG CAPSULE PO SCH (09:00)
[2019-04-07] MEDS: DEXT 5%/0.45% NACL 1000ML 1,000 ML IV SCH (09:16)
[2019-04-07] MEDS: AMLODIPINE 10MG TABLET PO SCH (09:17)
[2019-04-07] MEDS: ALLOPURINOL 100 MG TABLET PO SCH (09:17)
[2019-04-07] MEDS: LEVETIRACETAM 1,500 MG in SODIUM CHLORIDE 0.9% 100 ML IV SCH ×2 (09:17→21:04)
[2019-04-07] MEDS: MULTIVITAMINS,THER W-MINERALS TABLET PO SCH (09:17)
[2019-04-07] MEDS: COLCHICINE 0.6MG TABLET PO SCH (09:17)
[2019-04-07] MEDS: PANTOPRAZOLE SODIUM 40 MG/VIAL IV SCH (09:18)
[2019-04-07] MEDS: FOLIC ACID 1MG TABLET PO SCH (09:18)
[2019-04-07] MEDS: THIAMINE HCL 100MG TABLET PO SCH (09:18)
[2019-04-07] MEDS: DEXTROSE 50% WATER 50ML SYRINGE IV PRN (17:29)
[2019-04-07] MEDS: ATORVASTATIN CALCIUM 20MG TABLET PO SCH (21:02)
[2019-04-07] MEDS: DEXT 5%/0.9% NACL 1,000 ML IV SCH (21:04)
[2019-04-07] MEDS ORDERED: HYDROCORTISONE 1% OINT 28.35GM TOP PRN (22:00)
[2019-04-08] VITALS (12 sets, daily range): BP systolic 99–151; BP diastolic 63–84
[2019-04-08] MEDS: PHENYTOIN SODIUM 100MG/2ML VIAL IV SCH ×3 (05:35→22:02)
[2019-04-08] MEDS: BLOOD SUGAR DIAGNOSTIC STRIP TEST SCH ×4 (07:46→21:55)
[2019-04-08] MEDS: INSULIN LISPRO 100 UNITS/ML SUBCUT SCH ×4 (08:00→21:57)
[2019-04-08 08:04] LABS: BASOPHILS % 1.4 % (0.0-2.0); EOSINOPHILS % 13.8 % (0.0-5.0); LYMPHOCYTES % 31.6 % (20.0-50.0); MEAN CORPUSCULAR HEMOGLOBIN 30.5 pg (28.0-32.0); MEAN CORPUSCULAR VOLUME 91.5 fL (80.0-94.0); MEAN PLATELET VOLUME 7.6 fl (7.4-10.4); MONOCYTES % 11.6 % (2.0-8.0); NEUTROPHILS % 41.6 % (40.0-76.0); PLATELET 587 x1000/uL (130-400); RED BLOOD CELL COUNT 3.93 mill/uL (4.7-6.1); RED CELL DISTRIBUTION WIDTH 15.5 % (11.6-14.6)
[2019-04-08 08:08] LABS: CHLORIDE 96 mEq/L (98-107)
[2019-04-08 08:19] LABS: PHOSPHORUS 2.2 mg/dL (2.5-4.9)
[2019-04-08] MEDS: LEVETIRACETAM 1,500 MG in SODIUM CHLORIDE 0.9% 100 ML IV SCH ×2 (08:56→22:59)
[2019-04-08] MEDS: DEXT 5%/0.9% NACL 1,000 ML IV SCH ×2 (08:56→21:56)
[2019-04-08] MEDS: PANTOPRAZOLE SODIUM 40 MG/VIAL IV SCH (08:56)
[2019-04-08] MEDS: FOLIC ACID 1MG TABLET PO SCH (08:57)
[2019-04-08] MEDS: THIAMINE HCL 100MG TABLET PO SCH (08:57)
[2019-04-08] MEDS: MULTIVITAMINS,THER W-MINERALS TABLET PO SCH (08:57)
[2019-04-08] MEDS: COLCHICINE 0.6MG TABLET PO SCH (09:00)
[2019-04-08] MEDS: ALLOPURINOL 100 MG TABLET PO SCH (09:00)
[2019-04-08] MEDS: AMLODIPINE 10MG TABLET PO SCH (09:00)
[2019-04-08] MEDS ORDERED: ZONISAMIDE 100MG CAPSULE PO SCH (09:00)
[2019-04-08] MEDS: VALPROATE SODIUM 500 MG in SODIUM CHLORIDE 0.9% 100 ML IV SCH ×2 (12:25→21:55)
[2019-04-08] MEDS ORDERED: MAGNESIUM 2 G PREMIX 50 ML IV NR (15:30)
[2019-04-08] MEDS ORDERED: SODIUM PHOS,M-BASIC-D-BASIC 10 MM in DEXT 5% WATER 246.6667 ML IV NR ×2 (15:30→18:30)
[2019-04-08] MEDS: ATORVASTATIN CALCIUM 20MG TABLET PO SCH (21:00)
[2019-04-09] VITALS (12 sets, daily range): BP systolic 90–143; BP diastolic 48–81
[2019-04-09] MEDS: VALPROATE SODIUM 500 MG in SODIUM CHLORIDE 0.9% 100 ML IV SCH ×3 (05:09→22:09)
[2019-04-09 06:20] LABS: CHLORIDE 100 mEq/L (98-107)
[2019-04-09 06:40] LABS: PHOSPHORUS 2.2 mg/dL (2.5-4.9)
[2019-04-09 06:41] LABS: HEMATOCRIT. 34.8 % (42.0-52.0); HEMOGLOBIN. 11.8 g/dL (14.0-18.0); MEAN CORPUSCULAR HEMOGLOBIN 31.2 pg (28.0-32.0); MEAN CORPUSCULAR VOLUME 91.8 fL (80.0-94.0); MEAN PLATELET VOLUME 7.5 fl (7.4-10.4); PLATELET 565 x1000/uL (130-400); RED BLOOD CELL COUNT 3.79 mill/uL (4.7-6.1); RED CELL DISTRIBUTION WIDTH 15.4 % (11.6-14.6)
[2019-04-09] MEDS: PHENYTOIN SODIUM 100MG/2ML VIAL IV SCH ×3 (07:25→22:09)
[2019-04-09] MEDS: BLOOD SUGAR DIAGNOSTIC STRIP TEST SCH ×5 (07:29→21:00)
[2019-04-09] MEDS: INSULIN LISPRO 100 UNITS/ML SUBCUT SCH ×4 (07:33→21:00)
[2019-04-09] MEDS: FOLIC ACID 1MG TABLET PO SCH ×2 (09:00→14:35)
[2019-04-09] MEDS: AMLODIPINE 10MG TABLET PO SCH ×2 (09:00→14:35)
[2019-04-09] MEDS: MULTIVITAMINS,THER W-MINERALS TABLET PO SCH ×2 (09:00→14:35)
[2019-04-09] MEDS: THIAMINE HCL 100MG TABLET PO SCH ×2 (09:00→14:36)
[2019-04-09] MEDS: COLCHICINE 0.6MG TABLET PO SCH ×2 (09:00→14:36)
[2019-04-09] MEDS: ALLOPURINOL 100 MG TABLET PO SCH ×2 (09:00→14:35)
[2019-04-09] MEDS: PANTOPRAZOLE SODIUM 40 MG/VIAL IV SCH (09:22)
[2019-04-09] MEDS: LEVETIRACETAM 1,500 MG in SODIUM CHLORIDE 0.9% 100 ML IV SCH ×2 (10:21→23:48)
[2019-04-09] MEDS: DEXTROSE 50% WATER 50ML SYRINGE IV PRN ×2 (11:26→14:00)
[2019-04-09] MEDS ORDERED: SODIUM CHLORIDE 0.9% 1000ML BAG (SEPSIS BOLUS) IV ONE (13:00)
[2019-04-09] MEDS ORDERED: SODIUM CHLORIDE 0.9% 1,000 ML IV SCH (13:00)
[2019-04-09 16:34] LABS: PLATELET ESTIMATE INCREASED
[2019-04-09] MEDS ORDERED: DEXTROSE 50% WATER 50ML SYRINGE IV PRN (17:45)
[2019-04-09] MEDS: DEXT 5%/0.9% NACL 1,000 ML IV SCH (17:53)
[2019-04-09] MEDS: ATORVASTATIN CALCIUM 20MG TABLET PO SCH (22:09)
[2019-04-10] VITALS (11 sets, daily range): BP systolic 114–177; BP diastolic 62–89
[2019-04-10] MEDS: DEXT 5%/0.9% NACL 1,000 ML IV SCH ×2 (03:46→14:36)
[2019-04-10] MEDS: VALPROATE SODIUM 500 MG in SODIUM CHLORIDE 0.9% 100 ML IV SCH ×3 (03:46→21:23)
[2019-04-10] MEDS: PHENYTOIN SODIUM 100MG/2ML VIAL IV SCH ×3 (06:28→21:23)
[2019-04-10] MEDS: BLOOD SUGAR DIAGNOSTIC STRIP TEST SCH ×4 (07:42→21:24)
[2019-04-10] MEDS: INSULIN LISPRO 100 UNITS/ML SUBCUT SCH ×4 (07:42→21:00)
[2019-04-10] MEDS: THIAMINE HCL 100MG TABLET PO SCH (09:50)
[2019-04-10] MEDS: MULTIVITAMINS,THER W-MINERALS TABLET PO SCH (09:50)
[2019-04-10] MEDS: AMLODIPINE 10MG TABLET PO SCH (09:50)
[2019-04-10] MEDS: COLCHICINE 0.6MG TABLET PO SCH (09:50)
[2019-04-10] MEDS: FOLIC ACID 1MG TABLET PO SCH (09:50)
[2019-04-10] MEDS: PANTOPRAZOLE SODIUM 40 MG/VIAL IV SCH (09:50)
[2019-04-10] MEDS: LEVETIRACETAM 1,500 MG in SODIUM CHLORIDE 0.9% 100 ML IV SCH ×2 (09:51→21:23)
[2019-04-10] MEDS: ATORVASTATIN CALCIUM 20MG TABLET PO SCH (21:23)
[2019-04-11] VITALS (51 sets, daily range): BP systolic 43–178; BP diastolic 27–110
[2019-04-11] MEDS: DEXT 5%/0.9% NACL 1,000 ML IV SCH ×2 (02:41→12:01)
[2019-04-11] MEDS: VALPROATE SODIUM 500 MG in SODIUM CHLORIDE 0.9% 100 ML IV SCH ×3 (03:00→20:44)
[2019-04-11] MEDS: PHENYTOIN SODIUM 100MG/2ML VIAL IV SCH ×3 (06:25→21:42)
[2019-04-11] MEDS: INSULIN LISPRO 100 UNITS/ML SUBCUT SCH ×4 (08:00→21:16)
[2019-04-11] MEDS: BLOOD SUGAR DIAGNOSTIC STRIP TEST SCH ×4 (08:01→21:00)
[2019-04-11] MEDS: LEVETIRACETAM 1,500 MG in SODIUM CHLORIDE 0.9% 100 ML IV SCH ×2 (09:17→21:42)
[2019-04-11] MEDS: ALLOPURINOL 100 MG TABLET PO SCH (09:17)
[2019-04-11] MEDS: MULTIVITAMINS,THER W-MINERALS TABLET PO SCH (09:17)
[2019-04-11] MEDS: PANTOPRAZOLE SODIUM 40 MG/VIAL IV SCH (09:17)
[2019-04-11] MEDS: FOLIC ACID 1MG TABLET PO SCH (09:18)
[2019-04-11] MEDS: COLCHICINE 0.6MG TABLET PO SCH (09:18)
[2019-04-11] MEDS: THIAMINE HCL 100MG TABLET PO SCH (09:18)
[2019-04-11] MEDS: AMLODIPINE 10MG TABLET PO SCH (09:18)
[2019-04-11] MEDS ORDERED: SODIUM CHLORIDE 0.9% 10ML VIAL ONE (13:53)
[2019-04-11] MEDS ORDERED: VECURONIUM BROMIDE 10 MG/VIAL IV ONE (13:53)
[2019-04-11] MEDS ORDERED: ETOMIDATE 2MG/ML 10ML VIAL IV ONE (13:53)
[2019-04-11] MEDS ORDERED: DOPAMINE 400MG/250ML PREMIX 250 ML IV PRN (14:08)
[2019-04-11] MEDS ORDERED: DOBUTAMINE 500 MG in DEXT 5% WATER 210 ML IV PRN (14:15)
[2019-04-11] MEDS ORDERED: NOREPINEPHRINE 4MG/250ML PMX 250 ML IV ONE (14:15)
[2019-04-11] MEDS ORDERED: DOBUTAMINE 500MG PREMIX 250 ML IV PRN (14:15)
[2019-04-11] MEDS: NOREPINEPHRINE 16 MG in DEXT 5% WATER 234 ML IV PRN ×2 (14:29→20:54)
[2019-04-11 15:00] LABS: BG CARBOXYHEMOGLOBIN 0.3 % (0.5-1.5); BG DEOXYHEMOGLOBIN 0.4 % (0.0-5.0); BG FRACTION INSPIRED OXYGEN 100; BG HCO3 ACT 14.6 mmol/L (22.0-26.0); BG METHEMOGLOBIN 0.3 % (0.0-1.5); BG OXYGEN SATURATION 99.6 % (92.0-98.5); BG PCO2 28.1 mmHg (35.0-45.0); BG PH 7.334 (7.350-7.450); BG PO2 468.4 mmHg (75.0-100.0); BG SAMPLE SITE RIGHT RADIAL; BG TIDAL VOLUME(mL) 500 mL; BG TOTAL HEMOGLOBIN 9.9 g/dL (12.0-18.0); BG VENT MODE VENT - A/C; BG VENT RATE 12 set
[2019-04-11] MEDS ORDERED: ATROPINE SULFATE 1MG/10ML SYR ONE (15:00)
[2019-04-11] MEDS ORDERED: FENTANYL CITRATE/PF 500 MCG in SODIUM CHLORIDE 0.9% 40 ML IV PRN (15:30)
[2019-04-11] MEDS ORDERED: MIDAZOLAM HCL 50 MG in DEXTROSE 5% WATER 40 ML IV PRN (15:30)
[2019-04-11] MEDS: ATORVASTATIN CALCIUM 20MG TABLET PO SCH (21:16)
[2019-04-12] VITALS (85 sets, daily range): BP systolic 48–96; BP diastolic 28–68
[2019-04-12 00:33] LABS: HEMATOCRIT. 34.7 % (42.0-52.0); HEMOGLOBIN. 10.2 g/dL (14.0-18.0); MEAN CORPUSCULAR HEMOGLOBIN 31.3 pg (28.0-32.0); MEAN CORPUSCULAR VOLUME 106.6 fL (80.0-94.0); MEAN PLATELET VOLUME 7.6 fl (7.4-10.4); PLATELET 388 x1000/uL (130-400); RED BLOOD CELL COUNT 3.25 mill/uL (4.7-6.1); RED CELL DISTRIBUTION WIDTH 16.9 % (11.6-14.6)
[2019-04-12] MEDS: VALPROATE SODIUM 500 MG in SODIUM CHLORIDE 0.9% 100 ML IV SCH ×2 (04:15→11:03)
[2019-04-12] MEDS: DOPAMINE 800MG PREMIX (DOUBLE) 250 ML IV PRN ×2 (04:16→10:58)
[2019-04-12] MEDS ORDERED: SODIUM BICARBONATE 8.4% 1 MEQ/ML 50ML SYR IV NR ×4 (05:15→08:30)
[2019-04-12] MEDS ORDERED: PHENYLEPHRINE 40 MG in DEXT 5% WATER 246 ML IV PRN (05:15)
[2019-04-12] MEDS: BLOOD SUGAR DIAGNOSTIC STRIP TEST SCH ×3 (06:26→16:17)
[2019-04-12] MEDS: INSULIN LISPRO 100 UNITS/ML SUBCUT SCH ×3 (06:26→18:54)
[2019-04-12] MEDS: PHENYTOIN SODIUM 100MG/2ML VIAL IV SCH ×2 (06:27→16:02)
[2019-04-12] MEDS: DEXT 5%/0.9% NACL 1,000 ML IV SCH (06:30)
[2019-04-12 07:11] LABS: PLATELET ESTIMATE NORMAL
[2019-04-12] MEDS ORDERED: SODIUM BICARBONATE 8.4% 1 MEQ/ML 50ML SYR IV ONE (07:45)
[2019-04-12] MEDS ORDERED: LIDOCAINE HCL 1% 20ML VIAL (Pyxis) INJ ONE (07:58)
[2019-04-12] MEDS ORDERED: SODIUM CHLORIDE 0.9% 1,000 ML IV NR (08:00)
[2019-04-12] MEDS ORDERED: SODIUM CHLORIDE 0.9% 1,000 ML IV ONE (08:00)
[2019-04-12 08:20] LABS: BG CARBOXYHEMOGLOBIN 0.3 % (0.5-1.5); BG DEOXYHEMOGLOBIN 14.4 % (0.0-5.0); BG FRACTION INSPIRED OXYGEN 40; BG HCO3 ACT 8.1 mmol/L (22.0-26.0); BG METHEMOGLOBIN 0.3 % (0.0-1.5); BG OXYGEN SATURATION 85.5 % (92.0-98.5); BG PCO2 24.1 mmHg (35.0-45.0); BG PH 7.147 (7.350-7.450); BG PO2 61.4 mmHg (75.0-100.0); BG SAMPLE SITE RIGHT RADIAL; BG TIDAL VOLUME(mL) 500 mL; BG TOTAL HEMOGLOBIN 13.4 g/dL (12.0-18.0); BG VENT MODE VENT - A/C; BG VENT RATE 12 set
[2019-04-12] MEDS ORDERED: ALBUMIN HUMAN 25GM/100ML (25%) IV NR (08:45)
[2019-04-12] MEDS ORDERED: NOREPINEPHRINE 32 MG in DEXT 5% WATER 468 ML IV PRN (09:00)
[2019-04-12] MEDS: AMLODIPINE 10MG TABLET PO SCH (09:00)
[2019-04-12] MEDS: LEVETIRACETAM 1,500 MG in SODIUM CHLORIDE 0.9% 100 ML IV SCH (09:03)
[2019-04-12] MEDS: PANTOPRAZOLE SODIUM 40 MG/VIAL IV SCH (09:03)
[2019-04-12] MEDS: THIAMINE HCL 100MG TABLET PO SCH (09:04)
[2019-04-12] MEDS: FOLIC ACID 1MG TABLET PO SCH (09:04)
[2019-04-12] MEDS: ALLOPURINOL 100 MG TABLET PO SCH (09:04)
[2019-04-12] MEDS: MULTIVITAMINS,THER W-MINERALS TABLET PO SCH (09:04)
[2019-04-12] MEDS: COLCHICINE 0.6MG TABLET PO SCH (09:24)
[2019-04-12] MEDS: PHENYLEPHRINE 80 MG in DEXT 5% WATER 492 ML IV PRN ×2 (09:25→16:01)
[2019-04-12] MEDS: VASOPRESSIN 10 UNIT in SODIUM CHLORIDE 0.9% 99.5 ML IV PRN ×3 (09:28→16:02)
[2019-04-12] MEDS ORDERED: SODIUM BICARBONATE 150 MEQ in DEXTROSE 5% WATER 1,000 ML IV SCH (09:30)
[2019-04-12] MEDS ORDERED: VANCOMYCIN 1500MG in DEXTROSE 5% WATER 250ML IV NR (10:00)
[2019-04-12] MEDS ORDERED: MEROPENEM 1,000 MG in SODIUM CHLORIDE 0.9% 100 ML IV NR (11:00)
[2019-04-12 11:04] LABS: HEMATOCRIT. 33.4 % (42.0-52.0); HEMOGLOBIN. 10.8 g/dL (14.0-18.0); MEAN CORPUSCULAR HEMOGLOBIN 30.4 pg (28.0-32.0); MEAN CORPUSCULAR VOLUME 94.1 fL (80.0-94.0); MEAN PLATELET VOLUME 7.4 fl (7.4-10.4); PLATELET 403 x1000/uL (130-400); RED BLOOD CELL COUNT 3.55 mill/uL (4.7-6.1)
[2019-04-12 11:12] LABS: INR 1.3; PROTHROMBIN TIME 14.1 sec (9.6-11.0)
[2019-04-12 11:29] LABS: CREATINE KINASE MB FRACTION 2.3 ng/mL (0.5-3.6)
[2019-04-12] MEDS ORDERED: POTASSIUM CHLORIDE INJ 40 MEQ in DEXT 5% WATER 250 ML IV NR ×2 (12:00→16:00)
[2019-04-12 13:54] LABS: PLATELET ESTIMATE INCREASED
[2019-04-12] MEDS ORDERED: MORPHINE SULFATE 4 MG/ML CPJ (NOT FOR IM USE) IV SCH (16:00)
[2019-04-12] MEDS ORDERED: MORPHINE SULFATE 250 MG in DEXT 5% WATER 240 ML IV PRN (16:00)
[2019-04-12] MEDS ORDERED: MORPHINE (DRIP)100 MG in DEXT 5% WATER 100ML IV PRN (16:00)
[2019-04-12] MEDS ORDERED: MORPHINE SULFATE IV PRN (16:15)
[2019-04-12] MEDS ORDERED: DEXTROSE 5% IV PRN (16:15)
[2019-04-12] MEDS ORDERED: WATER IV PRN (16:15)
[2019-04-13] MEDS ORDERED: MEROPENEM 1,000 MG in SODIUM CHLORIDE 0.9% 100 ML IV SCH ×2
[2019-04-13] MEDS ORDERED: VANCOMYCIN 1 G PREMIX 200 ML IV SCH (04:00)
[2019-04-13] MEDS ORDERED: VANCOMYCIN 750 MG PREMIX 150 ML IV SCH (09:00)
== END 2019-04-12 20:05 | disposition expired | DRG 25 ==
LOC: ER 15:18 → 5WST 17:54 → EDBEDREQSVC 03-28 08:50 → ENRESERV 03-28 10:08 → MICUNO 03-31 13:40 → 5EST 04-07 23:56 → MICUSO 04-11 14:17
PROVIDERS: ADMIT Hospitalist; ATTEND Hospitalist
PROC: 4A00X4Z Measurement of Central Nervous Electrical Activity, External Approach (ICD-10-PCS; 2019-03-29)
PROC: 00C40ZZ Extirpation of Matter from Intracranial Subdural Space, Open Approach (ICD-10-PCS; principal; 2019-03-31)
PROC: 0NU00JZ Supplement Skull with Synthetic Substitute, Open Approach (ICD-10-PCS; 2019-03-31)
PROC: 00U207Z Supplement Dura Mater with Autologous Tissue Substitute, Open Approach (ICD-10-PCS; 2019-03-31)
PROC: 00H632Z Insertion of Monitoring Device into Cerebral Ventricle, Percutaneous Approach (ICD-10-PCS; 2019-03-31)
PROC: 4A103BD Monitoring of Intracranial Pressure, Percutaneous Approach (ICD-10-PCS; 2019-03-31)
PROC: 5A1945Z Respiratory Ventilation, 24-96 Consecutive Hours (ICD-10-PCS; 2019-03-31)
PROC: 0BH17EZ Insertion of Endotracheal Airway into Trachea, Via Natural or Artificial Opening (ICD-10-PCS; 2019-04-01)
PROC: B54BZZA Ultrasonography of Right Lower Extremity Veins, Guidance (ICD-10-PCS; 2019-04-01)
PROC: 06HY33Z Insertion of Infusion Device into Lower Vein, Percutaneous Approach (ICD-10-PCS; 2019-04-01)
PROC: 0BH17EZ Insertion of Endotracheal Airway into Trachea, Via Natural or Artificial Opening (ICD-10-PCS; 2019-04-11)
PROC: 5A1945Z Respiratory Ventilation, 24-96 Consecutive Hours (ICD-10-PCS; 2019-04-11)
PROC: B54MZZA Ultrasonography of Right Upper Extremity Veins, Guidance (ICD-10-PCS; 2019-04-12)
PROC: 05HY33Z Insertion of Infusion Device into Upper Vein, Percutaneous Approach (ICD-10-PCS; 2019-04-12)
DX: I62.03 Nontraumatic chronic subdural hemorrhage (principal); J96.00 Acute respiratory failure, unspecified whether with hypoxia or hypercapnia; E43 Unspecified severe protein-calorie malnutrition; G93.41 Metabolic encephalopathy; E87.2 Acidosis; R47.01 Aphasia; G40.409 Other generalized epilepsy and epileptic syndromes, not intractable, without status epilepticus; I12.9 Hypertensive chronic kidney disease with stage 1 through stage 4 chronic kidney disease, or unspecified chronic kidney disease; F10.21 Alcohol dependence, in remission; E03.9 Hypothyroidism, unspecified; E11.22 Type 2 diabetes mellitus with diabetic chronic kidney disease; E11.65 Type 2 diabetes mellitus with hyperglycemia; E78.5 Hyperlipidemia, unspecified; M10.9 Gout, unspecified; N18.9 Chronic kidney disease, unspecified; E11.649 Type 2 diabetes mellitus with hypoglycemia without coma; I44.0 Atrioventricular block, first degree; I46.9 Cardiac arrest, cause unspecified; R62.7 Adult failure to thrive; E78.00 Pure hypercholesterolemia, unspecified; E78.1 Pure hyperglyceridemia; I49.3 Ventricular premature depolarization; I25.10 Atherosclerotic heart disease of native coronary artery without angina pectoris; I25.2 Old myocardial infarction; Z86.73 Personal history of transient ischemic attack (TIA), and cerebral infarction without residual deficits; Z79.4 Long term (current) use of insulin; Z82.49 Family history of ischemic heart disease and other diseases of the circulatory system; Z68.23 Body mass index [BMI] 23.0-23.9, adult; Z79.82 Long term (current) use of aspirin; Z79.899 Other long term (current) drug therapy
CPT/HCPCS: 31500; 36415; 36600; 70551; 71045; 76937; 80048; 80053; 80165; 80185; 80202; 80305; 80320; 81003; 82140; 82375; 82550; 82553; 82607; 82746; 82805; 82962; 83036; 83735; 83880; 84100; 84439; 84443; 84478; 84481; 84484; 85025; 85027; 87070; 87075; 88304; 92610; 93005; 93306; 93970; 94002; 94003; 94640; 97162; 97166; 99291; C1713; C1725; C9113; J0330; J0360; J0461; J0690; J1100; J1165; J1265; J1650; J1815; J1953; J2060; J2185; J2250; J2270; J2370; J2405; J2704; J2710; J2765; J3010; J3370; J3475; J3480; J3490; J7030; J7042; J7050; J7060; J7070; J7120; J7121; P9047; G0480